=== PATIENT | male | born 1980 | race American Indian/Alaskan Native ===

== ENCOUNTER 2016-09-23 04:55 | Emergency (ER) | payer OTHER ==
[2016-09-23 09:34] VITALS: BP 160/93
[2016-09-23] MEDS ORDERED: NORCO 10/325 PO ONE (09:40)
--- NOTE | 2016-09-23 09:58 | Emergency Department Report ---
ED ENT HPI - General Chief complaint: Dental/Oral Stated complaint: MOUTH ABSCESS Time Seen by Provider: 09/23/16 09:40 Source: patient Mode of arrival: Ambulatory Limitations: No Limitations - History of Present Illness Initial comments: 36 y/o male complain of dental pain and right jaw pain x3 days Onset/Timin -: days(s) Quality: aching Consistency: constant Improves with: none Worsens with: none Context- Dental: poor dental care - Related Data Previous Rx's Medication Instructions Recorded Last Taken Type Naproxen Sodium [Aleve] 220 mg PO Q8H PRN #50 tablet 09/01/14 Unknown Rx methOCARBAMOL [Robaxin] 500 mg PO BID #14 tab 09/01/14 Unknown Rx oxyCODONE /ACETAMINOPHEN [Percocet 1 tab PO Q6HR PRN #10 tablet 09/01/14 Unknown Rx 5/325 mg] HYDROcodone/APAP 7.5-325 [Oil Trough 1 each PO Q6HR PRN #10 tablet 09/23/16 Unknown Rx 7.5/325] Ibuprofen [Motrin] 800 mg PO Q8HR PRN #15 tablet 09/23/16 Unknown Rx Penicillin Vk [Veetids TAB] 250 mg PO QID #28 tablet 09/23/16 Unknown Rx Allergies Allergy/AdvReac Type Severity Reaction Status Date / Time No Known Allergies Allergy Verified 09/01/14 16:20 ED Dental HPI - General Chief complaint: Dental/Oral Stated complaint: MOUTH ABSCESS Time Seen by Provider: 09/23/16 09:40 Source: patient Mode of arrival: Ambulatory Limitations: No Limitations - Related Data Previous Rx's Medication Instructions Recorded Last Taken Type Naproxen Sodium [Aleve] 220 mg PO Q8H PRN #50 tablet 09/01/14 Unknown Rx methOCARBAMOL [Robaxin] 500 mg PO BID #14 tab 09/01/14 Unknown Rx oxyCODONE /ACETAMINOPHEN [Percocet 1 tab PO Q6HR PRN #10 tablet 09/01/14 Unknown Rx 5/325 mg] HYDROcodone/APAP 7.5-325 [Oil Trough 1 each PO Q6HR PRN #10 tablet 09/23/16 Unknown Rx 7.5/325] Ibuprofen [Motrin] 800 mg PO Q8HR PRN #15 tablet 09/23/16 Unknown Rx Penicillin Vk [Veetids TAB] 250 mg PO QID #28 tablet 09/23/16 Unknown Rx Allergies Allergy/AdvReac Type Severity Reaction Status Date / Time No Known Allergies Allergy Verified 09/01/14 16:20 ED Review of Systems ROS: Stated complaint: MOUTH ABSCESS Other details as noted in HPI Constitutional: denies: chills, fever Eyes: denies: eye pain, eye discharge, vision change ENT: dental pain. denies: ear pain, throat pain Respiratory: denies: cough, shortness of breath, wheezing Cardiovascular: denies: chest pain, palpitations Endocrine: no symptoms reported Gastrointestinal: denies: abdominal pain, nausea, diarrhea Genitourinary: denies: urgency, dysuria Musculoskeletal: denies: back pain, joint swelling, arthralgia Skin: denies: rash, lesions Neurological: denies: headache, weakness, paresthesias Psychiatric: denies: anxiety, depression Hematological/Lymphatic: denies: easy bleeding, easy bruising ED Past Medical Hx - Past Medical History Previous Medical History?: No Hx Hypertension: No - Surgical History Past Surgical History?: No - Social History Smoking Status: Never Smoker Substance Use Type: None - Medications Home Medications: Home Medications Medication Instructions Recorded Confirmed Last Taken Type Naproxen Sodium [Aleve] 220 mg PO Q8H PRN #50 tablet 09/01/14 Unknown Rx methOCARBAMOL [Robaxin] 500 mg PO BID #14 tab 09/01/14 Unknown Rx oxyCODONE /ACETAMINOPHEN [Percocet 1 tab PO Q6HR PRN #10 tablet 09/01/14 Unknown Rx 5/325 mg] HYDROcodone/APAP 7.5-325 [Oil Trough 1 each PO Q6HR PRN #10 tablet 09/23/16 Unknown Rx 7.5/325] Ibuprofen [Motrin] 800 mg PO Q8HR PRN #15 tablet 09/23/16 Unknown Rx Penicillin Vk [Veetids TAB] 250 mg PO QID #28 tablet 09/23/16 Unknown Rx ED Physical Exam - General Limitations: No Limitations General appearance: alert, in no apparent distress - Head Head exam: Present: atraumatic, normocephalic - Eye Eye exam: Present: normal appearance, PERRL - ENT ENT exam: Present: mucous membranes moist - Expanded ENT Exam Expanded Mouth exam: Absent: trismus, muffled voice Teeth exam: Present: dental caries (32) - Neck Neck exam: Present: normal inspection - Respiratory Respiratory exam: Present: normal lung sounds bilaterally. Absent: respiratory distress - Cardiovascular Cardiovascular Exam: Present: regular rate, normal rhythm. Absent: systolic murmur, diastolic murmur, rubs, gallop - GI/Abdominal GI/Abdominal exam: Present: soft, normal bowel sounds - Rectal Rectal exam: Present: deferred - Extremities Exam Extremities exam: Present: normal inspection - Back Exam Back exam: Present: normal inspection - Neurological Exam Neurological exam: Present: alert, oriented X3 - Psychiatric Psychiatric exam: Present: normal affect, normal mood - Skin Skin exam: Present: warm, dry, intact, normal color. Absent: rash ED Course Vital Signs 09/23/16 09/23/16 05:00 09:33 Temperature 99.1 F 98.7 F Pulse Rate 76 69 Respiratory 22 20 Rate Blood Pressure 139/86 Blood Pressure 139/86 160/93 [Left] O2 Sat by Pulse 100 100 Oximetry ED Medical Decision Making - Medical Decision Making toothache pt has dentist appointment on the Sep 25 Critical care attestation.: If time is entered above; I have spent that time in minutes in the direct care of this critically ill patient, excluding procedure time. ED Disposition Clinical Impression: Toothache Disposition: DISCHARGED TO HOME OR SELFCARE Is pt being admited?: No Does the pt Need Aspirin: No Condition: Stable Instructions: Toothache (ED) Additional Instructions: keep dentist appointment on Prescriptions: HYDROcodone/APAP 7.5-325 [Oil Trough 7.5/325] 1 each PO Q6HR PRN #10 tablet PRN Reason: Pain Ibuprofen [Motrin] 800 mg PO Q8HR PRN #15 tablet PRN Reason: Pain Penicillin Vk [Veetids TAB] 250 mg PO QID #28 tablet Referrals: PRIMARY CARE, [Primary Care Provider] - 3-5 Days Forms: Work/School Release Form(ED) Time of Disposition: 10:00
== END 2016-09-23 10:13 | disposition home or self-care (01) ==
LOC: ED 04:55
DX: K08.89 Other specified disorders of teeth and supporting structures (principal)
CPT/HCPCS: 99282